=== PATIENT | female | born 1995 | race Caucasian/White ===

== ENCOUNTER 2018-04-04 04:56 | Inpatient (IN) | payer OTHER ==
[2018-04-04] VITALS (10 sets, daily range): BP systolic 102–129; BP diastolic 55–72
[~2018-04-04] VITALS: Ht 172.7 cm; Wt 74.0 kg
[2018-04-04] MEDS ORDERED: MAKENA250 MG/1 M IM (06:23)
[2018-04-04 06:45] LABS: AMPHETAMINE NEGATIVE (500 ng/mL); BARBITURATES NEGATIVE (200 ng/mL); BENZODIAZEPINES NEGATIVE (150 ng/mL); BUPRENORPHINE NEGATIVE (10 ng/mL); COCAINE NEGATIVE (150 ng/mL); METHADONE NEGATIVE (200 ng/mL); METHAMPHETAMINE NEGATIVE (500 ng/mL); OPIATES (MORPHINE) NEGATIVE (100 ng/mL); OXYCODONE NEGATIVE (100 ng/mL); PHENCYCLIDINE NEGATIVE (25 ng/mL); PROPOXYPHENE NEGATIVE (300 ng/mL); THC CANNABINOIDS NEGATIVE (50 ng/mL); TRICYCLIC ANTIDEPRESSANTS NEGATIVE (300 ng/mL)
[2018-04-04 07:26] LABS: BASOPHIL (%) 0.3 % (0-1); BASOPHIL COUNT 0.1 K/uL (0-0.1); EOSINOPHIL (%) 0.1 % (0-5); HEMATOCRIT 36.5 % (36.0-46.0); HEMOGLOBIN 13.1 G/DL (11.9-15.5); IMMATURE GRANULOCYTE (%) 0.5 % (0.0-0.7); LYMPHOCYTE (%) 16.9 % (15-42); LYMPHOCYTE COUNT 3.3 K/uL (1.0-2.8); MCH 31.9 PG (29.0-34.0); MCHC 35.9 G/DL (30.0-36.0); MCV 88.8 FL (83-99); MONOCYTE (%) 7.1 % (3-12); MONOCYTE COUNT 1.4 K/uL (0-0.8); NEUTROPHIL (%) 75.1 % (45-76); NEUTROPHIL COUNT 14.8 K/uL (1.8-6.4); PLATELET COUNT 260 K/uL (156-360); RBC DIS.WIDTH-CV 12.2 % (11.8-14.6); RBC DIS.WIDTH-SD 39.4 % (39-53); RED BLOOD COUNT 4.11 M/uL (3.80-5.20); WHITE BLOOD COUNT 19.7 K/uL (4.1-10.2)
[2018-04-04] MEDS ORDERED: PRENATAL VITAM1 EA11 PO (08:03)
[2018-04-05 07:24] VITALS: BP 108/67
[2018-04-05] MEDS ORDERED: IBUPROFEN800 MG PO (10:42)
== END 2018-04-05 12:49 | disposition home health service (06) | DRG 775 ==
LOC: LDRP-OP 04:56 → 2WEST 04:57 → LDRP-OP 05-05 09:14
PROVIDERS: Nurse Practitioner
PROC: 10E0XZZ Delivery of Products of Conception, External Approach (ICD-10-PCS; principal; 2018-04-04)
DX: O62.3 Precipitate labor (principal); Z3A.40 40 weeks gestation of pregnancy; Z37.0 Single live birth
CPT/HCPCS: 85025; C1755